=== PATIENT | male | born 1985 | race Caucasian/White ===

== ENCOUNTER 2017-01-17 12:32 | Emergency (ER) | payer BC ==
--- NOTE | ~2017-01-17 | EKG ---
PATIENT: ALIYA LOVE UNIT #: [id number] Ventricular Rate: 78 BPM Atrial Rate: 78 BPM P-R Interval: 144 ms QRS Duration: 64 ms Q-T Interval: 370 ms QTC Calculation(Bezet): 421 ms Calculated R Halsey: 27 degrees Calculated T Halsey: 11 degrees Diagnosis Line: Normal sinus rhythm Diagnosis Line: Anterior leads not connected. Diagnosis Line: Otherwise normal ECG Diagnosis Line: No previous ECGs available Diagnosis Line: Confirmed by SALVADOR STAHL MD ([id number]) on 01/18/2017 Diagnosis Line: 5:51:36 PM INTERPRETING MD: MARIBETH LEON
--- NOTE | ~2017-01-17 | CT71 ---
[facility] A Service [facility] RADIOLOGY TEXT RESULTS PATIENT: ALIYA LOVE LOCATION: SED : 85 UNIT #: [id number] AGE: [address]: Joe Gandhi MD SEX: M ORDER DR: [id number] [place] [id number] MR#: [id number] Acc #: [id number] NAME: ALIYA LOVE : 1985 SEX: M STUDY DATE/TIME: 01/17/2017 14:51 UNIT: SED ROOM: STUDY DESCRIPTION: CT Head Wo Contrast Attending Physician: Joe Gandhi M.D. Ordering Physician: Joe Gandhi M.D. Primary Care Physician: Primary Care Physician No MEDICAL IMAGING REPORT This report is preliminary unless electronic signature is present. 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 TECHNIQUE Axial noncontrast images were obtained from the skull base to the vertex. This CT exam was performed with one or more of the following radiation dose reduction techniques: automatic exposure control, adjustment of mA and/or kV according to patient size, and iterative reconstruction. FINDINGS Ventricular size and configuration are normal. There is no evidence of acute infarct or hemorrhage. There are no extraaxial fluid collections. No mass lesion or mass effect is seen. There are no skull fractures. IMPRESSION Normal noncontrast head CT. Dictated by... Burke Beaulieu M.D. THIS IS AN ELECTRONICALLY VERIFIED REPORT Burke Beaulieu M.D. at 01/18/2017 8:37 AM JMS/to TD: 01/17/2017 18:33 JOB #: [id number] MEDICAL IMAGING REPORT [facility] RADIOLOGY TEXT RESULTS PATIENT: ALIYA LOVE LOCATION: SED : 85 UNIT #: [id number] AGE: [address]: Joe Gandhi MD SEX: M ORDER DR: Page 1 of 1
[2017-01-17 14:29] LABS: BASOPHIL# 0.1 X10e3 (0-0.3); BASOPHIL% 1.1 % (0-2.5); EOSINOPHIL# 0.1 X10e3 (0-0.7); EOSINOPHIL% 2.1 % (0.0-7.0); HEMOGLOBIN 14.3 gm/dL (13.0-16.0); LYMPHOCYTE# 2.2 X10e3 (1.0-3.5); LYMPHOCYTE% 33.5 % (17.0-45.0); MEAN CELL VOLUME 87.4 FL (83-96); MEAN CORPUSCULAR HEMOGLOBIN 29.8 PG (28-34); MEAN CORPUSCULAR HGB CONC 34.1 g/dL (30-36); MEAN PLATELET VOLUME 7.8 FL (6.5-11.5); MONOCYTE# 0.4 X10e3 (0-1.0); MONOCYTE% 6.5 % (3.0-12.0); NEUTROPHIL# 3.8 X10e3 (1.5-7.1); NEUTROPHIL% 56.8 % (40-75); PLATELET COUNT 229 X10e3 (140-420); RED CELL DISTRIBUTION WIDTH 12.7 % (11.0-15.5); WHITE BLOOD COUNT 6.6 X10e3 (4.0-10.5)
[2017-01-17 14:30] LABS: DIFF IND NO
[2017-01-17 14:39] LABS: POC - CKMB <1.0 ng/mL (0.0-7.9); POC - TROPONIN <0.05 ng/mL (<=0.05)
[2017-01-17 14:48] LABS: ALBUMIN SERUM 4.3 g/dL (3.5-5.0); BILIRUBIN, DIRECT 0.1 mg/dL (0.0-0.2); BILIRUBIN,INDIRECT 0.9 mg/dL (0.0-0.9); BUN/CREATININE RATIO 14.44; CALCIUM SERUM 9.3 mg/dL (8.4-10.2); CREATININE SERUM 0.9 mg/dL (0.6-1.4); GLOM FILT RATE Estimated 113.4 mL/min (>60); POTASSIUM 4.3 mmol/L (3.5-5.1)
== END 2017-01-17 15:55 | disposition home or self-care (01) ==
LOC: SED 12:32
PROVIDERS: Emergency Medicine
DX: H81.10 Benign paroxysmal vertigo, unspecified ear (principal); H83.01 Labyrinthitis, right ear; F17.220 Nicotine dependence, chewing tobacco, uncomplicated; Z90.49 Acquired absence of other specified parts of digestive tract
CPT/HCPCS: 36415; 70450; 80048; 80076; 82553; 82947; 84484; 85025; 85379; 96360; 99284